=== PATIENT | female | born 1940 | race African-American/Black ===

== ENCOUNTER 2019-07-05 17:51 | Emergency (ER) | payer MEDICARE, OTHER ==
[~2019-07-05] VITALS: Ht 154.9 cm; Wt 85.0 kg
[~2019-07-05 17:51] MED LIST: ALBU6.7H9; ALBUTEROL MDI INH; AMLO2.5T45 PO; ATOR10TA PO; Acyclovir PO; CLON0.1T14; FLUT1DIS3 IH; FURO-151 PO; HUMILIN SUBCUT; HYDR-4134 PO; HYDR-523 PO; INSU3INS8 SQ; LEVPEN SQ; LISI10TA5 PO; MONT10TA21 PO; OMEP40CA; PROT40 PO; RIVA20TA PO; TIOT18CA3 IH; TYLENOL WITH CODEINE
[2019-07-05] MEDS ORDERED: ACETAMINOPHEN 325MG TABLET PO ONE (18:15)
[2019-07-05 20:22] VITALS: BP 128/73
== END 2019-07-05 20:22 | disposition home or self-care (01) ==
LOC: ER 19:42
DX: S09.8XXA Other specified injuries of head, initial encounter (principal); J44.9 Chronic obstructive pulmonary disease, unspecified; I10 Essential (primary) hypertension; F03.90 Unspecified dementia, unspecified severity, without behavioral disturbance, psychotic disturbance, mood disturbance, and anxiety; E11.9 Type 2 diabetes mellitus without complications; Z79.4 Long term (current) use of insulin; Z95.0 Presence of cardiac pacemaker; W18.09XA Striking against other object with subsequent fall, initial encounter; Y93.89 Activity, other specified; Y92.89 Other specified places as the place of occurrence of the external cause
CPT/HCPCS: 99284

== ENCOUNTER 2020-05-19 14:00 | Inpatient (IN) | payer MEDICARE, MEDICAID ==
[~2020-05-19] VITALS: Ht 152.4 cm; Wt 70.8 kg
[2020-05-19] MEDS: BUDESONIDE 0.5MG/2ML NEB HHN SCH (01:09)
[2020-05-19 18:00] VITALS: BP 94/55
[2020-05-19 18:30] VITALS: BP 101/65
[2020-05-19] MEDS ORDERED: DIPHENHYDRAMINE 50MG/ML VIAL IV PRN (19:15)
[2020-05-19] MEDS ORDERED: ONDANSETRON HCL 4MG/2ML INJ IV PRN (19:15)
[2020-05-19] MEDS ORDERED: ENOXAPARIN 40MG/0.4ML SYR SUBCUT SCH (19:15)
[2020-05-19] MEDS ORDERED: ACETAMINOPHEN 325MG TABLET PO PRN (19:15)
[2020-05-19] MEDS ORDERED: CLONIDINE 0.1MG TABLET PO PRN (19:15)
[2020-05-19] MEDS ORDERED: IPRATROPIUM/ALBUTEROL 0.5-3(2.5)MG/3ML NEB HHN PRN (19:30)
[2020-05-19] MEDS ORDERED: DEXTROSE 50% WATER 50ML SYRINGE IV PRN (19:45)
[2020-05-19 20:58] VITALS: BP 145/95
[2020-05-19] MEDS: BLOOD SUGAR DIAGNOSTIC STRIP TEST SCH (21:00)
[2020-05-19] MEDS: INSULIN LISPRO 100 UNITS/ML SUBCUT SCH (21:00)
[2020-05-19 21:10] LABS: BASOPHILS % 0.3 % (0.0-2.0); CHLORIDE 114 mEq/L (98-107); HEMOGLOBIN. 13.4 g/dL (12.0-16.0); LYMPHOCYTES % 25.9 % (20.0-50.0); MEAN CORPUSCULAR HEMOGLOBIN 27.3 pg (28.0-32.0); MEAN CORPUSCULAR VOLUME 85.3 fL (81.0-99.0); MONOCYTES % 5.6 % (2.0-8.0); NEUTROPHILS % 68.2 % (40.0-76.0); PLATELET 154 x1000/uL (130-400); RED BLOOD CELL COUNT 4.92 mill/uL (4.2-5.4); RED CELL DISTRIBUTION WIDTH 16.9 % (11.6-14.6)
[2020-05-19] MEDS: MONTELUKAST SODIUM 10MG TABLET PO SCH (21:51)
[2020-05-19] MEDS: FUROSEMIDE 40MG/4ML VIAL IVP SCH (21:51)
[2020-05-19] MEDS: ATORVASTATIN CALCIUM 10MG TABLET PO SCH (21:51)
[2020-05-19 22:02] VITALS: BP 94/63
[2020-05-19] MEDS: ENOXAPARIN 80MG/0.8ML SYR SUBCUT SCH (23:22)
[2020-05-20] VITALS (12 sets, daily range): BP systolic 94–132; BP diastolic 54–79
[2020-05-20] MEDS: IPRATROPIUM/ALBUTEROL 0.5-3(2.5)MG/3ML NEB HHN SCH ×4 (01:09→21:28)
[2020-05-20] MEDS: BLOOD SUGAR DIAGNOSTIC STRIP TEST SCH ×4 (05:54→21:00)
[2020-05-20] MEDS: PANTOPRAZOLE 40MG DR TABLET PO SCH (05:54)
[2020-05-20] MEDS: INSULIN LISPRO 100 UNITS/ML SUBCUT SCH ×4 (06:22→21:00)
[2020-05-20 06:34] LABS: BASOPHILS % 0.5 % (0.0-2.0); EOSINOPHILS % 0.3 % (0.0-5.0); HEMATOCRIT. 45.5 % (36.0-48.0); HEMOGLOBIN. 14.7 g/dL (12.0-16.0); LYMPHOCYTES % 34.7 % (20.0-50.0); MEAN CORPUSCULAR HEMOGLOBIN 27.5 pg (28.0-32.0); MEAN CORPUSCULAR VOLUME 85.2 fL (81.0-99.0); MEAN PLATELET VOLUME 8.7 fl (7.4-10.4); MONOCYTES % 7.4 % (2.0-8.0); NEUTROPHILS % 57.1 % (40.0-76.0); PLATELET 154 x1000/uL (130-400); RED BLOOD CELL COUNT 5.34 mill/uL (4.2-5.4); RED CELL DISTRIBUTION WIDTH 16.8 % (11.6-14.6)
[2020-05-20 06:41] LABS: INR 1.2; PROTHROMBIN TIME 12.5 sec (9.6-11.0)
[2020-05-20 07:00] LABS: CHLORIDE 110 mEq/L (98-107)
[2020-05-20] MEDS: BUDESONIDE 0.5MG/2ML NEB HHN SCH ×2 (08:30→21:28)
[2020-05-20] MEDS: FUROSEMIDE 40MG/4ML VIAL IVP SCH ×2 (09:00→11:36)
[2020-05-20] MEDS ORDERED: AMLODIPINE 2.5MG TABLET PO SCH (09:00)
[2020-05-20] MEDS ORDERED: LISINOPRIL 10MG TABLET PO SCH (09:00)
[2020-05-20] MEDS: ENOXAPARIN 80MG/0.8ML SYR SUBCUT SCH (10:02)
[2020-05-20] MEDS ORDERED: LACTULOSE 20G/30ML UDC PO NR (13:30)
[2020-05-20] MEDS: DOCUSATE SODIUM 100MG CAPSULE PO SCH ×2 (14:37→17:09)
[2020-05-20 16:40] LABS: CLARITY URINE CLEAR (CLEAR); COLOR URINE YELLOW (YELLOW); KETONES URINE NEGATIVE (NEGATIVE); LEUKOCYTE ESTERASE URINE NEGATIVE (NEGATIVE); NITRITE URINE NEGATIVE (NEGATIVE); OCCULT BLOOD URINE NEGATIVE (NEGATIVE); PROTEIN URINE NEGATIVE (NEGATIVE); UROBILINOGEN URINE 0.2 E.U./dL (0.2-1.0)
[2020-05-20] MEDS: ATORVASTATIN CALCIUM 10MG TABLET PO SCH (21:25)
[2020-05-20] MEDS: MONTELUKAST SODIUM 10MG TABLET PO SCH (21:25)
[2020-05-21] VITALS (13 sets, daily range): BP systolic 93–144; BP diastolic 47–83
[2020-05-21] MEDS: IPRATROPIUM/ALBUTEROL 0.5-3(2.5)MG/3ML NEB HHN SCH ×4 (02:13→20:35)
[2020-05-21] MEDS: BLOOD SUGAR DIAGNOSTIC STRIP TEST SCH ×4 (06:04→21:59)
[2020-05-21] MEDS: PANTOPRAZOLE 40MG DR TABLET PO SCH (06:04)
[2020-05-21] MEDS: INSULIN LISPRO 100 UNITS/ML SUBCUT SCH ×4 (06:41→22:01)
[2020-05-21] MEDS: BUDESONIDE 0.5MG/2ML NEB HHN SCH ×2 (07:19→20:35)
[2020-05-21] MEDS ORDERED: FENTANYL CITRATE/PF 50MCG/ML 2ML VIAL ONE (07:44)
[2020-05-21] MEDS ORDERED: LIDOCAINE HCL 1% 20ML VIAL (Pyxis) INJ ONE (07:44)
[2020-05-21] MEDS ORDERED: MIDAZOLAM HCL 2 MG/2 ML VIAL ONE (07:45)
[2020-05-21 09:08] LABS: BG BASE EXCESS 3.6 mmol/L (-2.0-2.0); BG CARBOXYHEMOGLOBIN 1.4 % (0.5-1.5); BG DEOXYHEMOGLOBIN 40.5 % (0.0-5.0); BG FRACTION INSPIRED OXYGEN 21; BG HCO3 ACT 29.9 mmol/L (22.0-26.0); BG METHEMOGLOBIN 0.1 % (0.0-1.5); BG OXYGEN SATURATION 58.9 % (92.0-98.5); BG PCO2 51.4 mmHg (35.0-45.0); BG PH 7.382 (7.350-7.450); BG SAMPLE SITE OTHER; BG TOTAL HEMOGLOBIN 14.7 g/dL (12.0-18.0); BG VENT MODE ROOM AIR
[2020-05-21 09:12] LABS: BG BASE EXCESS 2.9 mmol/L (-2.0-2.0); BG CARBOXYHEMOGLOBIN 1.4 % (0.5-1.5); BG DEOXYHEMOGLOBIN 41.3 % (0.0-5.0); BG FRACTION INSPIRED OXYGEN 21; BG HCO3 ACT 29.1 mmol/L (22.0-26.0); BG METHEMOGLOBIN 0.1 % (0.0-1.5); BG OXYGEN SATURATION 58.1 % (92.0-98.5); BG OXYHEMOGLOBIN 57.2 % (94.0-97.0); BG PCO2 50.8 mmHg (35.0-45.0); BG PH 7.376 (7.350-7.450); BG PO2 31.1 mmHg (75.0-100.0); BG SAMPLE SITE PA LINE; BG TOTAL HEMOGLOBIN 14.7 g/dL (12.0-18.0); BG VENT MODE ROOM AIR
[2020-05-21] MEDS: HYDRALAZINE HCL 25MG TABLET PO SCH ×3 (14:00→21:59)
[2020-05-21] MEDS: DOCUSATE SODIUM 100MG CAPSULE PO SCH ×2 (14:30→17:00)
[2020-05-21] MEDS: MONTELUKAST SODIUM 10MG TABLET PO SCH (21:59)
[2020-05-21] MEDS: ATORVASTATIN CALCIUM 10MG TABLET PO SCH (21:59)
[2020-05-21] MEDS ORDERED: ACETAMINOPHEN 325MG TABLET PO PRN (22:00)
[2020-05-22] VITALS (12 sets, daily range): BP systolic 91–142; BP diastolic 53–82
[2020-05-22] MEDS: IPRATROPIUM/ALBUTEROL 0.5-3(2.5)MG/3ML NEB HHN SCH ×4 (02:34→20:19)
[2020-05-22] MEDS: BLOOD SUGAR DIAGNOSTIC STRIP TEST SCH ×4 (06:10→20:44)
[2020-05-22] MEDS: PANTOPRAZOLE 40MG DR TABLET PO SCH (06:10)
[2020-05-22] MEDS: HYDRALAZINE HCL 25MG TABLET PO SCH ×3 (06:10→22:00)
[2020-05-22] MEDS: INSULIN LISPRO 100 UNITS/ML SUBCUT SCH ×4 (07:20→20:46)
[2020-05-22] MEDS: CARVEDILOL 6.25 MG TABLET PO SCH ×2 (09:00→20:41)
[2020-05-22] MEDS: DOCUSATE SODIUM 100MG CAPSULE PO SCH ×2 (09:40→17:30)
[2020-05-22] MEDS: FUROSEMIDE 40MG TABLET PO SCH (13:09)
[2020-05-22] MEDS: BUDESONIDE 0.5MG/2ML NEB HHN SCH ×2 (13:15→20:19)
[2020-05-22] MEDS ORDERED: RIVAROXABAN 10 MG TABLET PO SCH (17:20)
[2020-05-22] MEDS: MONTELUKAST SODIUM 10MG TABLET PO SCH (20:52)
[2020-05-22] MEDS: ATORVASTATIN CALCIUM 10MG TABLET PO SCH (20:52)
[2020-05-23] VITALS (12 sets, daily range): BP systolic 87–118; BP diastolic 48–80
[2020-05-23] MEDS: IPRATROPIUM/ALBUTEROL 0.5-3(2.5)MG/3ML NEB HHN SCH ×3 (01:35→14:40)
[2020-05-23] MEDS: HYDRALAZINE HCL 25MG TABLET PO SCH ×2 (06:00→14:00)
[2020-05-23] MEDS: BLOOD SUGAR DIAGNOSTIC STRIP TEST SCH ×2 (06:31→11:50)
[2020-05-23] MEDS: PANTOPRAZOLE 40MG DR TABLET PO SCH (06:32)
[2020-05-23] MEDS: INSULIN LISPRO 100 UNITS/ML SUBCUT SCH ×2 (07:20→12:20)
[2020-05-23] MEDS: CARVEDILOL 6.25 MG TABLET PO SCH (09:00)
[2020-05-23] MEDS: FUROSEMIDE 40MG TABLET PO SCH (09:19)
[2020-05-23] MEDS: DOCUSATE SODIUM 100MG CAPSULE PO SCH (09:19)
[2020-05-23] MEDS ORDERED: SACU1TAB7 MT ×2 (11:54→11:57)
== END 2020-05-23 15:30 | disposition home or self-care (01) | DRG 286 ==
LOC: 3WST 14:00 → UNDOADMIN 14:00 → 3WST 17:30
PROVIDERS: ADMIT Internal Medicine; ATTEND Internal Medicine
PROC: 4A1239Z Monitoring of Cardiac Output, Percutaneous Approach (ICD-10-PCS; principal; 2020-05-21)
PROC: 4A023N6 Measurement of Cardiac Sampling and Pressure, Right Heart, Percutaneous Approach (ICD-10-PCS; 2020-05-21)
PROC: B2111ZZ Fluoroscopy of Multiple Coronary Arteries using Low Osmolar Contrast (ICD-10-PCS; 2020-05-21)
PROC: B2141ZZ Fluoroscopy of Right Heart using Low Osmolar Contrast (ICD-10-PCS; 2020-05-21)
DX: I11.0 Hypertensive heart disease with heart failure (principal); G82.50 Quadriplegia, unspecified; G93.41 Metabolic encephalopathy; J96.01 Acute respiratory failure with hypoxia; J44.1 Chronic obstructive pulmonary disease with (acute) exacerbation; I50.43 Acute on chronic combined systolic (congestive) and diastolic (congestive) heart failure; I42.9 Cardiomyopathy, unspecified; E03.9 Hypothyroidism, unspecified; E11.9 Type 2 diabetes mellitus without complications; E78.5 Hyperlipidemia, unspecified; F03.90 Unspecified dementia, unspecified severity, without behavioral disturbance, psychotic disturbance, mood disturbance, and anxiety; K21.9 Gastro-esophageal reflux disease without esophagitis; I48.91 Unspecified atrial fibrillation; E78.00 Pure hypercholesterolemia, unspecified; I49.5 Sick sinus syndrome; Z20.828 Contact with and (suspected) exposure to other viral communicable diseases; I27.20 Pulmonary hypertension, unspecified; Z90.89 Acquired absence of other organs; Z95.0 Presence of cardiac pacemaker; Z90.49 Acquired absence of other specified parts of digestive tract; Z79.899 Other long term (current) drug therapy
CPT/HCPCS: 36415; 36600; 71045; 80048; 80053; 80061; 81003; 82375; 82805; 82962; 83036; 83880; 84484; 85025; 93005; 93306; 93451; 93970; 94640; 97162; C1893; J1644; J1650; J1815; J1940; J2250; J3010; J3490; J7626; U0003-CS

== ENCOUNTER 2020-05-27 08:15 | Inpatient (IN) | payer MEDICARE, MEDICAID ==
[~2020-05-27] VITALS: Ht 154.9 cm; Wt 74.6 kg
[~2020-05-27 08:15] MED LIST changes: -LISI10TA5 PO
[2020-05-27] MEDS ORDERED: FAMO20TA8 PO (09:13)
[2020-05-27] MEDS ORDERED: P20 MT (09:13)
[2020-05-27] MEDS ORDERED: MEMA10TA55 MT (09:13)
[2020-05-27] MEDS ORDERED: ASPI-1497 MT (09:13)
[2020-05-27] MEDS ORDERED: CELE-84 MT (09:13)
[2020-05-27] MEDS ORDERED: MONT10TA26 MT (09:13)
[2020-05-27] MEDS ORDERED: PARO10TA74 MT (09:13)
[2020-05-27 09:56] LABS: HEMATOCRIT 38.8 % (36.0-48.0); HEMOGLOBIN 12.7 g/dL (12.0-16.0); MEAN CORPUSCULAR HEMOGLOBIN 27.8 pg (28.0-32.0); MEAN CORPUSCULAR VOLUME 85.1 fL (81.0-99.0); PLATELET 195 x1000/uL (130-400); RED BLOOD CELL COUNT 4.55 mill/uL (4.2-5.4)
[2020-05-27 10:06] LABS: CHLORIDE 109 mEq/L (98-107); INR 1.1; PROTHROMBIN TIME 11.6 sec (9.6-11.0)
[2020-05-27] MEDS ORDERED: LIDOCAINE HCL 1% 20ML VIAL (Pyxis) INJ ONE (11:00)
[2020-05-27] MEDS ORDERED: IODIXANOL 320MG/ML 100 ML BOTTLE IV ONE (11:02)
[2020-05-27] MEDS ORDERED: MIDAZOLAM HCL 2 MG/2 ML VIAL ONE ×2 (11:19→11:48)
[2020-05-27] MEDS ORDERED: FENTANYL CITRATE/PF 50MCG/ML 2ML VIAL ONE (11:19)
[2020-05-27] MEDS ORDERED: VERAPAMIL HCL 2.5 MG/1 ML 2ML VIAL IV ONE (11:21)
[2020-05-27] MEDS ORDERED: ACETAMINOPHEN 325MG TABLET PO PRN (14:15)
[2020-05-27 17:20] VITALS: BP 128/76
[2020-05-27] MEDS ORDERED: PNEUMOCOCCAL 23-VAL P-SAC VAC 0.5 ML IM ONE (19:00)
[2020-05-27] MEDS ORDERED: DEXTROSE 50% WATER 50ML SYRINGE IV PRN (19:45)
[2020-05-27 20:00] VITALS: BP 138/63
[2020-05-27] MEDS: INSULIN LISPRO 100 UNITS/ML SUBCUT SCH (21:00)
[2020-05-27] MEDS ORDERED: METOPROLOL TARTRATE 25MG TABLET PO SCH (21:00)
[2020-05-27] MEDS: BLOOD SUGAR DIAGNOSTIC STRIP TEST SCH (21:01)
[2020-05-27] MEDS: ATORVASTATIN CALCIUM 40MG TABLET PO SCH (21:05)
[2020-05-28] VITALS: BP 128/60
[2020-05-28 04:00] VITALS: BP 101/66
[2020-05-28] MEDS: BLOOD SUGAR DIAGNOSTIC STRIP TEST SCH ×4 (07:10→21:00)
[2020-05-28] MEDS: INSULIN LISPRO 100 UNITS/ML SUBCUT SCH ×4 (07:40→21:00)
[2020-05-28 07:58] VITALS: BP 74/51
[2020-05-28] MEDS ORDERED: SODIUM CHLORIDE 0.45% 250 ML IV ONE (08:30)
[2020-05-28] MEDS: ASPIRIN 81MG TABLET PO SCH (09:03)
[2020-05-28 09:41] LABS: BASOPHILS % 0.8 % (0.0-2.0); EOSINOPHILS % 0.4 % (0.0-5.0); HEMATOCRIT. 45.8 % (36.0-48.0); HEMOGLOBIN. 14.8 g/dL (12.0-16.0); LYMPHOCYTES % 25.4 % (20.0-50.0); MEAN CORPUSCULAR HEMOGLOBIN 27.8 pg (28.0-32.0); MEAN CORPUSCULAR VOLUME 86.1 fL (81.0-99.0); MEAN PLATELET VOLUME 8.7 fl (7.4-10.4); MONOCYTES % 6.9 % (2.0-8.0); NEUTROPHILS % 66.5 % (40.0-76.0); PLATELET 209 x1000/uL (130-400); RED BLOOD CELL COUNT 5.32 mill/uL (4.2-5.4); RED CELL DISTRIBUTION WIDTH 17.1 % (11.6-14.6)
[2020-05-28 09:51] LABS: CHLORIDE 108 mEq/L (98-107)
[2020-05-28 11:57] VITALS: BP 102/67
[2020-05-28 16:00] VITALS: BP 108/60
[2020-05-28] MEDS ORDERED: RIVAROXABAN 20 MG TABLET PO SCH (17:00)
[2020-05-28 20:00] VITALS: BP 103/55
[2020-05-28] MEDS: ATORVASTATIN CALCIUM 40MG TABLET PO SCH (20:17)
[2020-05-29 04:00] VITALS: BP 114/57
[2020-05-29] MEDS: BLOOD SUGAR DIAGNOSTIC STRIP TEST SCH ×2 (07:11→11:52)
[2020-05-29] MEDS: INSULIN LISPRO 100 UNITS/ML SUBCUT SCH ×2 (07:12→11:52)
[2020-05-29 08:00] VITALS: BP 133/82
[2020-05-29] MEDS: ASPIRIN 81MG TABLET PO SCH (08:24)
[2020-05-29 11:38] VITALS: BP 95/60
[2020-05-29 12:00] VITALS: BP 95/60
== END 2020-05-29 13:50 | disposition home or self-care (01) | DRG 286 ==
LOC: CCL 08:15 → 8WST 08:16
PROVIDERS: ADMIT Internal Medicine; ATTEND Internal Medicine
PROC: 4A023N7 Measurement of Cardiac Sampling and Pressure, Left Heart, Percutaneous Approach (ICD-10-PCS; principal; 2020-05-27)
PROC: B211YZZ Fluoroscopy of Multiple Coronary Arteries using Other Contrast (ICD-10-PCS; 2020-05-27)
PROC: B41FYZZ Fluoroscopy of Right Lower Extremity Arteries using Other Contrast (ICD-10-PCS; 2020-05-27)
DX: I25.10 Atherosclerotic heart disease of native coronary artery without angina pectoris (principal); I50.21 Acute systolic (congestive) heart failure; I47.1 Supraventricular tachycardia; I42.8 Other cardiomyopathies; E03.9 Hypothyroidism, unspecified; D64.9 Anemia, unspecified; F03.90 Unspecified dementia, unspecified severity, without behavioral disturbance, psychotic disturbance, mood disturbance, and anxiety; E78.5 Hyperlipidemia, unspecified; I11.0 Hypertensive heart disease with heart failure; J44.9 Chronic obstructive pulmonary disease, unspecified; I95.9 Hypotension, unspecified; D49.9 Neoplasm of unspecified behavior of unspecified site; G80.9 Cerebral palsy, unspecified; R26.89 Other abnormalities of gait and mobility; K21.9 Gastro-esophageal reflux disease without esophagitis; E10.51 Type 1 diabetes mellitus with diabetic peripheral angiopathy without gangrene; E86.1 Hypovolemia; I27.20 Pulmonary hypertension, unspecified; Z79.4 Long term (current) use of insulin; Z79.899 Other long term (current) drug therapy; Z86.79 Personal history of other diseases of the circulatory system; Z95.0 Presence of cardiac pacemaker
CPT/HCPCS: 36415; 80048; 82962; 83036; 85025; 85027; 90732; 93005; 93458; C1760; C1769; C1887; C1893; J1644; J1815; J2250; J3010; J3490; Q9967

== ENCOUNTER 2020-07-13 22:49 | Emergency (ER) | payer MEDICARE, MEDICAID ==
[~2020-07-13] VITALS: Ht 154.9 cm; Wt 86.0 kg
[~2020-07-13 22:49] MED LIST changes: +ASPI-1497 MT; +CELE-84 MT; +FAMO20TA8 PO; +MEMA10TA55 MT; -MONT10TA21 PO; +MONT10TA26 MT; +P20 MT; +PARO10TA74 MT
[2020-07-14 01:03] LABS: CHLORIDE 119 mEq/L (98-107)
[2020-07-14 03:08] LABS: BASOPHILS % 0.9 % (0.0-2.0); EOSINOPHILS % 1.2 % (0.0-5.0); HEMATOCRIT. 40.4 % (36.0-48.0); MEAN CORPUSCULAR HEMOGLOBIN 27.6 pg (28.0-32.0); MEAN CORPUSCULAR VOLUME 85.9 fL (81.0-99.0); MEAN PLATELET VOLUME 8.7 fl (7.4-10.4); MONOCYTES % 10.1 % (2.0-8.0); NEUTROPHILS % 41.8 % (40.0-76.0); PLATELET 240 x1000/uL (130-400); RED BLOOD CELL COUNT 4.71 mill/uL (4.2-5.4); RED CELL DISTRIBUTION WIDTH 19.2 % (11.6-14.6)
[2020-07-14 03:20] VITALS: BP 125/82
== END 2020-07-14 03:21 | disposition home or self-care (01) ==
LOC: ER 22:49
DX: R06.02 Shortness of breath (principal); E11.9 Type 2 diabetes mellitus without complications; F03.90 Unspecified dementia, unspecified severity, without behavioral disturbance, psychotic disturbance, mood disturbance, and anxiety; J44.9 Chronic obstructive pulmonary disease, unspecified; I10 Essential (primary) hypertension; Z95.0 Presence of cardiac pacemaker; Z85.9 Personal history of malignant neoplasm, unspecified
CPT/HCPCS: 36415; 71045; 80053; 85025; 93005; 99285